=== PATIENT | male | born 1970 | race Hispanic/Latino ===

== ENCOUNTER 2022-02-04 06:20 | Day surgery (SDC) | payer BC ==
[2022-02-01 10:47] VITALS: BMI 29.0
[2022-02-04] MEDS ORDERED: Lidocaine 1% w/Epinephrine 1:100K 30 ML VIAL ONE (06:40)
[2022-02-04] MEDS ORDERED: Bupivacaine 0.25% 10 ML VIAL ONE (06:40)
[2022-02-04] MEDS ORDERED: Fentanyl 100 MCG/2 ML VIAL ONE (07:16)
[2022-02-04] MEDS ORDERED: cefOXitin 2 GM VIAL ONE (07:42)
[2022-02-04] MEDS ORDERED: Sodium Chloride 0.9% 100 ML ONE (07:43)
== END 2022-02-04 10:34 | disposition home or self-care (01) ==
LOC: SDC 06:20
PROVIDERS: ATTEND Surgery
PROC: 0FT44ZZ Resection of Gallbladder, Percutaneous Endoscopic Approach (ICD-10-PCS; principal; 2022-02-04)
DX: K80.10 Calculus of gallbladder with chronic cholecystitis without obstruction (principal); Z85.038 Personal history of other malignant neoplasm of large intestine; Z91.013 Allergy to seafood; Z91.041 Radiographic dye allergy status
CPT/HCPCS: C1713; J0694; J3010; J3490; S0020